=== PATIENT | female | born 1990 | race Two or more races ===

== ENCOUNTER 2023-05-24 03:27 | Emergency (ER) | payer OTHER ==
[~2023-05-24] VITALS: Ht 160 cm; Wt 87.1 kg
[~2023-05-24 03:27] MED LIST: PROTONIX40 MG PO
[2023-05-24 05:45] LABS: HEMATOCRIT 35.5 % (36.0-45.00); HEMOGLOBIN 11.8 g/dL (12.0-15.00); MEAN CELL VOLUME 77.2 fL (80.00-100.00); MEAN CORPUSCULAR HEMOGLOBIN 25.8 pg (27.00-32.0); MEAN CORPUSCULAR HGB CONC 33.4 g/dl (32.0-36.0); PLATELET COUNT 263 K/uL (150-450); RED CELL DISTRIBUTION WIDTH 15.4 % (11.5-14.5)
[2023-05-24 07:26] LABS: URINE APPEARANCE Cloudy; URINE BILIRRUBIN Negative (NEGATIVE); URINE BLOOD Large; URINE COLOR Orange; URINE GLUCOSE Negative (NEGATIVE); URINE LEUKOCYTE Trace; URINE NITRATE Negative; URINE PROTEIN Trace (NEGATIVE); URINE UROBILINOGEN 0.2 E.U./dl
[2023-05-24 07:27] LABS: URINE BACTERIA 711.8 uL (0.0-1933); URINE EPITHELIAL CELLS 17.6 uL (0.0-38.8); URINE RBC 1233.2 uL (0.0-20.8); URINE WBC 6.6 uL (0.0-23.2)
[2023-05-24 07:51] LABS: URINE YEAST NEGATIVE /hpf
[2023-05-24 07:54] LABS: CALCIUM 9.8 mg/dL (8.5-10.1); CREATININE SERUM 0.66 mg/dL (0.55-1.02); GFR 103.78; POTASSIUM 4.02 mEq/L (3.5-5.1)
[2023-05-24 07:58] LABS: INR 0.99; PARTIAL THROMBOPLASTIN TIME 25.6 SECONDS (22.0-34.0); PROTHROMBIN TIME 10.4 SECONDS (9.0-11.5)
== END 2023-05-24 10:08 | disposition designated cancer center or children's hospital (05) ==
LOC: ER 03:27
PROVIDERS: General Practice
DX: O03.4 Incomplete spontaneous abortion without complication (principal)

== ENCOUNTER 2023-12-18 07:23 | Emergency (ER) | payer OTHER ==
[~2023-12-18] VITALS: Ht 160 cm; Wt 88.0 kg
[~2023-12-18 07:23] MED LIST changes: +PRENATAL DHA200 MG
[2023-12-18] MEDS ORDERED: 0.9 % SODIUM CHLORIDE 500 ML IV ONE (08:45)
[2023-12-18] MEDS ORDERED: FAMOtidine 10 MG/ML (4ML VIAL) IV ONE (08:45)
[2023-12-18] MEDS ORDERED: MEPERIDINE HCL/PF 50 MG/ML VIAL IM ONE (08:45)
[2023-12-18] MEDS ORDERED: FAMOtidine 200mg/20ml VIAL ONE (08:49)
[2023-12-18 09:37] LABS: HEMATOCRIT 37.5 % (36.0-45.00); HEMOGLOBIN 12.6 g/dL (12.0-15.00); MEAN CELL VOLUME 76.1 fL (80.00-100.00); MEAN CORPUSCULAR HEMOGLOBIN 25.6 pg (27.00-32.0); MEAN CORPUSCULAR HGB CONC 33.7 g/dl (32.0-36.0); PLATELET COUNT 266 K/uL (150-450); RED BLOOD COUNT 4.92 M/uL (4.00-6.00); RED CELL DISTRIBUTION WIDTH 17.8 % (11.5-14.5)
[2023-12-18 09:56] LABS: URINE APPEARANCE Clear; URINE BILIRRUBIN Negative (NEGATIVE); URINE BLOOD Negative; URINE COLOR Yellow; URINE GLUCOSE Negative (NEGATIVE); URINE LEUKOCYTE Negative; URINE NITRATE Negative; URINE PROTEIN Negative (NEGATIVE); URINE UROBILINOGEN 0.2 E.U./dl
[2023-12-18 10:00] LABS: URINE BACTERIA 417.9 uL (0.0-1933); URINE EPITHELIAL CELLS 1.5 uL (0.0-38.8)
[2023-12-18 10:23] LABS: URINE RBC 1.2 uL (0.0-20.8); URINE WBC 1.3 uL (0.0-23.2)
== END 2023-12-18 13:06 | disposition home or self-care (01) ==
LOC: ER 07:24
PROVIDERS: General Practice
DX: R10.2 Pelvic and perineal pain (principal); R10.9 Unspecified abdominal pain; Z3A.12 12 weeks gestation of pregnancy; Z91.018 Allergy to other foods

== ENCOUNTER → 2023-12-22 08:36 | Outpatient (CLI) | payer OTHER | END | disposition home or self-care (01) | LOC: PRENATAL 08:36 | PROVIDERS: ATTEND Obstetrics & Gynecology Maternal & Fetal Medicine | DX: O36.80X0 Pregnancy with inconclusive fetal viability, not applicable or unspecified (principal); Z36.82 Encounter for antenatal screening for nuchal translucency; Z3A.12 12 weeks gestation of pregnancy ==

== ENCOUNTER 2024-03-01 02:05 | Outpatient (CLI) | payer OTHER ==
[~2024-03-01] VITALS: Ht 160 cm; Wt 93.4 kg
[2024-03-01 01:14] VITALS: BP 120/79
[2024-03-01 04:05] VITALS: BP 119/75
[2024-03-01 07:06] VITALS: BP 104/68; O2SAT 100
[2024-03-01 11:05] VITALS: BP 124/78
[2024-03-01 12:00] VITALS: BP 124/78
== END 2024-03-01 12:19 | disposition home or self-care (01) ==
LOC: OBS/DEL 02:05
PROVIDERS: ATTEND Student in an Organized Health Care Education/Training Program
DX: O26.892 Other specified pregnancy related conditions, second trimester (principal); R10.9 Unspecified abdominal pain; O26.849 Uterine size-date discrepancy, unspecified trimester; Z3A.21 21 weeks gestation of pregnancy

== ENCOUNTER → 2024-03-20 | Outpatient (CLI) | payer OTHER | END | disposition home or self-care (01) | LOC: PRENATAL 07:56 | PROVIDERS: ATTEND Obstetrics & Gynecology Maternal & Fetal Medicine | DX: O35.3XX0 Maternal care for (suspected) damage to fetus from viral disease in mother, not applicable or unspecified (principal); O44.00 Complete placenta previa NOS or without hemorrhage, unspecified trimester; Z3A.24 24 weeks gestation of pregnancy ==

== ENCOUNTER 2024-05-12 09:45 | Outpatient (CLI) | payer OTHER | END 2024-05-12 09:46 | disposition home or self-care (01) | LOC: PRENATAL 09:45 | PROVIDERS: ATTEND Obstetrics & Gynecology Maternal & Fetal Medicine | DX: O26.849 Uterine size-date discrepancy, unspecified trimester (principal); O36.8199 Decreased fetal movements, unspecified trimester, other fetus; Z3A.33 33 weeks gestation of pregnancy ==

== ENCOUNTER 2024-06-01 04:19 | Outpatient (CLI) | payer OTHER ==
[~2024-06-01] VITALS: Ht 160 cm; Wt 97.5 kg
[2024-06-01 03:37] VITALS: BP 121/78
[2024-06-01] MEDS ORDERED: RINGERS SOLUTION,LACTATED 1,000 ML IV SCH (04:45)
[2024-06-01] MEDS ORDERED: BETAMETHASONE ACETATE,SOD PHOS 30 MG/5 ML ML IM STA (04:50)
[2024-06-01] MEDS ORDERED: PRENATA CHEWAB1 EACH PO (05:26)
[2024-06-01] MEDS ORDERED: CHILDREN'S ASPI81 MG PO (05:27)
[2024-06-01] MEDS ORDERED: IRON236 MG PO (05:27)
[2024-06-01 06:05] VITALS: BP 148/79; O2SAT 99
[2024-06-01 06:31] LABS: PH,URINE 7.5 (5.0-8.0); URINE APPEARANCE Clear; URINE BILIRRUBIN Negative (NEGATIVE); URINE BLOOD Negative; URINE COLOR Yellow; URINE GLUCOSE Negative (NEGATIVE); URINE KETONE Negative (NEGATIVE); URINE LEUKOCYTE Negative; URINE NITRATE Negative; URINE PROTEIN Negative (NEGATIVE); URINE UROBILINOGEN 0.2 E.U./dl
[2024-06-01 06:36] LABS: URINE BACTERIA 744.1 uL (0.0-1933); URINE EPITHELIAL CELLS 9.6 uL (0.0-38.8); URINE RBC 3.8 uL (0.0-20.8); URINE WBC 11.3 uL (0.0-23.2)
[2024-06-01 06:41] LABS: URINE CAST 0.14 uL (0.0-1.40)
[2024-06-01 06:45] LABS: HEMATOCRIT 31.6 % (36.0-45.00); HEMOGLOBIN 10.8 g/dL (12.0-15.00); MEAN CORPUSCULAR HEMOGLOBIN 27.9 pg (27.00-32.0); MEAN CORPUSCULAR HGB CONC 34.1 g/dl (32.0-36.0); PLATELET COUNT 195 K/uL (150-450); RED BLOOD COUNT 3.85 M/uL (4.00-6.00); RED CELL DISTRIBUTION WIDTH 14.7 % (11.5-14.5)
[2024-06-01 07:07] LABS: INR 0.95; PARTIAL THROMBOPLASTIN TIME 25.6 SECONDS (22.0-34.0); PROTHROMBIN TIME 10.4 SECONDS (9.0-11.5)
[2024-06-01 07:14] LABS: ALBUMIN 2.7 gm/dL (3.4-5.0); BILIRUBIN TOTAL 0.32 mg/dL (0.3-1.2); CALCIUM 9.8 mg/dL (8.5-10.1); CREATININE SERUM 0.46 mg/dL (0.55-1.02); GFR 156.44; GLOBULINA 3.1 G/DL (2.4-3.5); POTASSIUM 3.45 mEq/L (3.5-5.1); TOTAL PROTEIN 5.8 gm/dL (6.4-8.2)
[2024-06-01 11:14] VITALS: BP 125/80
[2024-06-01 15:03] VITALS: BP 131/84
[2024-06-01 20:00] VITALS: BP 123/78
[2024-06-01 23:14] VITALS: BP 120/75
[2024-06-02 04:15] VITALS: BP 137/85
[2024-06-02] MEDS ORDERED: BETAMETHASONE ACETATE,SOD PHOS 30 MG/5 ML ML IM ONE (05:00)
[2024-06-02 06:58] VITALS: BP 129/89; O2SAT 99
[2024-06-02 07:30] VITALS: BP 129/89
== END 2024-06-02 10:07 | disposition home or self-care (01) ==
LOC: OBS/DEL 04:19
PROVIDERS: Obstetrics & Gynecology; ATTEND Student in an Organized Health Care Education/Training Program
DX: O42.913 Preterm premature rupture of membranes, unspecified as to length of time between rupture and onset of labor, third trimester (principal); Z3A.35 35 weeks gestation of pregnancy; Z91.018 Allergy to other foods

== ENCOUNTER 2024-06-07 16:34 | Outpatient (CLI) | payer OTHER ==
[~2024-06-07 16:34] MED LIST changes: +CHILDREN'S ASPI81 MG PO; +IRON236 MG PO; +PRENATA CHEWAB1 EACH PO
[2024-06-07 18:00] VITALS: BP 127/81
[2024-06-07] MEDS ORDERED: RINGERS SOLUTION,LACTATED 1,000 ML IV SCH (18:00)
[2024-06-07 18:18] LABS: PH,URINE 7.5 (5.0-8.0); URINE APPEARANCE Cloudy; URINE BILIRRUBIN Negative (NEGATIVE); URINE BLOOD Negative; URINE COLOR Yellow; URINE GLUCOSE Negative (NEGATIVE); URINE KETONE Negative (NEGATIVE); URINE LEUKOCYTE Negative; URINE NITRATE Negative; URINE PROTEIN Negative (NEGATIVE); URINE UROBILINOGEN 0.2 E.U./dl
[2024-06-07 18:21] LABS: URINE BACTERIA 926.3 uL (0.0-1933); URINE EPITHELIAL CELLS 11.8 uL (0.0-38.8); URINE RBC 11.6 uL (0.0-20.8); URINE WBC 18.9 uL (0.0-23.2)
[2024-06-07 18:22] LABS: URINE CAST 0.58 uL (0.0-1.40)
[2024-06-07 18:26] LABS: HEMATOCRIT 32.5 % (36.0-45.00); HEMOGLOBIN 11.1 g/dL (12.0-15.00); MEAN CORPUSCULAR HEMOGLOBIN 27.9 pg (27.00-32.0); MEAN CORPUSCULAR HGB CONC 34.1 g/dl (32.0-36.0); PLATELET COUNT 217 K/uL (150-450); RED BLOOD COUNT 3.96 M/uL (4.00-6.00); RED CELL DISTRIBUTION WIDTH 15.8 % (11.5-14.5)
[2024-06-07 18:36] LABS: INR 0.96; PARTIAL THROMBOPLASTIN TIME 24.8 SECONDS (22.0-34.0); PROTHROMBIN TIME 10.5 SECONDS (9.0-11.5)
[2024-06-07 18:40] LABS: ALBUMIN 2.9 gm/dL (3.4-5.0); BILIRUBIN TOTAL 0.29 mg/dL (0.3-1.2); CALCIUM 10.8 mg/dL (8.5-10.1); CREATININE SERUM 0.57 mg/dL (0.55-1.02); GFR 122.15; GLOBULINA 3.3 G/DL (2.4-3.5); POTASSIUM 3.91 mEq/L (3.5-5.1); TOTAL PROTEIN 6.2 gm/dL (6.4-8.2)
[2024-06-07 19:41] VITALS: BP 116/71
[2024-06-07 23:53] VITALS: BP 119/69
[2024-06-08] MEDS ORDERED: ACETAMINOPHEN 500 MG GEL..CAP PO ONE (00:15)
[2024-06-08 03:25] VITALS: BP 134/82
[2024-06-08 05:57] VITALS: BP 112/74; O2SAT 99
[2024-06-08 11:00] VITALS: BP 129/82
[2024-06-08 15:28] VITALS: BP 119/76
[2024-06-08 18:20] VITALS: BP 119/76
[2024-06-08 18:31] LABS: URINE PROT QUANT 24HR 9.9 MG/DL
[2024-06-08 18:33] LABS: URINE PROT QUANT 24 HR 499.95 MG/24HR (42-225)
[2024-06-08 19:13] LABS: CREATINE CLEARANCE 15402.9 ML/MIN (97-137); CREATININE SERUM 0.6 mg/dL (0.6-1.0)
== END 2024-06-08 18:20 | disposition home or self-care (01) ==
LOC: OBS/DEL 16:34
PROVIDERS: ATTEND Student in an Organized Health Care Education/Training Program
DX: O26.892 Other specified pregnancy related conditions, second trimester (principal); Z3A.27 27 weeks gestation of pregnancy; R10.2 Pelvic and perineal pain

== ENCOUNTER 2024-06-13 07:07 | Inpatient (IN) | payer OTHER ==
[~2024-06-13] VITALS: Ht 160 cm; Wt 98.0 kg
[2024-06-13 07:27] VITALS: BP 122/77
[2024-06-13] MEDS ORDERED: AMPICILLIN SODIUM 2,000 MG VIAL IV ONE (08:10)
[2024-06-13 08:14] LABS: PH,URINE 7.5 (5.0-8.0); URINE APPEARANCE Clear; URINE BILIRRUBIN Negative (NEGATIVE); URINE BLOOD Negative; URINE COLOR Yellow; URINE GLUCOSE Negative (NEGATIVE); URINE KETONE Negative (NEGATIVE); URINE LEUKOCYTE Small; URINE NITRATE Negative; URINE PROTEIN Trace (NEGATIVE); URINE UROBILINOGEN 0.2 E.U./dl
[2024-06-13 08:18] LABS: URINE BACTERIA 2101.5 uL (0.0-1933); URINE RBC 13.5 uL (0.0-20.8); URINE WBC 53.5 uL (0.0-23.2)
[2024-06-13 08:21] LABS: HEMATOCRIT 35.2 % (36.0-45.00); HEMOGLOBIN 11.6 g/dL (12.0-15.00); MEAN CORPUSCULAR HEMOGLOBIN 27.4 pg (27.00-32.0); PLATELET COUNT 198 K/uL (150-450); RED BLOOD COUNT 4.24 M/uL (4.00-6.00); RED CELL DISTRIBUTION WIDTH 15.1 % (11.5-14.5)
[2024-06-13 08:25] LABS: URINE CAST 0.73 uL (0.0-1.40)
[2024-06-13 08:44] LABS: INR 0.95; PARTIAL THROMBOPLASTIN TIME 25.9 SECONDS (22.0-34.0); PROTHROMBIN TIME 10.4 SECONDS (9.0-11.5)
[2024-06-13 09:18] LABS: ALBUMIN 2.9 gm/dL (3.4-5.0); BILIRUBIN TOTAL 0.39 mg/dL (0.3-1.2); CALCIUM 9.8 mg/dL (8.5-10.1); CREATININE SERUM 0.61 mg/dL (0.55-1.02); GFR 112.95; GLOBULINA 3.5 G/DL (2.4-3.5); POTASSIUM 3.92 mEq/L (3.5-5.1); TOTAL PROTEIN 6.4 gm/dL (6.4-8.2); URIC ACID 2.6 mg/dL (2.5-7.5)
[2024-06-13 11:48] VITALS: BP 123/62
[2024-06-13] MEDS ORDERED: AMPICILLIN SODIUM 1,000 MG VIAL IV SCH (12:00)
[2024-06-13] MEDS ORDERED: MISOPROSTOL 25 MCG/4 ML GEL.W.APPL ONE (12:14)
[2024-06-13] MEDS ORDERED: MISOPROSTOL 25 MCG/4 ML GEL.W.APPL VAG ONE ×2 (12:30→17:00)
[2024-06-13 15:13] VITALS: BP 124/74
[2024-06-13 20:47] VITALS: BP 130/82
[2024-06-13 23:32] VITALS: BP 118/62
[2024-06-14] VITALS (14 sets, daily range): BP systolic 118–161; BP diastolic 67–99
[2024-06-14] MEDS ORDERED: MISOPROSTOL 25 MCG/4 ML GEL.W.APPL ONE (08:28)
[2024-06-14] MEDS ORDERED: MISOPROSTOL 25 MCG/4 ML GEL.W.APPL VAG ONE (08:45)
[2024-06-14] MEDS ORDERED: OXYTOCIN 500 ML IV SCH (12:30)
[2024-06-14] MEDS ORDERED: OXYTOCIN 20 UNITS/500ML RL PIGGYBAG IV ONE (12:31)
[2024-06-14] MEDS ORDERED: MEPERIDINE HCL/PF 50 MG/ML VIAL IV ONE (15:15)
[2024-06-14] MEDS ORDERED: PROMETHAZINE HCL 25 MG/ML AMPUL IV ONE (15:15)
[2024-06-14] MEDS ORDERED: CHLORHEXIDINE GLUCONATE 120 ML BOTTLE TOP ONE ×2 (18:00→18:10)
[2024-06-14] MEDS ORDERED: OXYTOCIN 20 UNITS/1000ML RL PIGGYBAG IV ONE (18:10)
[2024-06-14] MEDS ORDERED: LIDOCAINE HCL 1% 10ML VIAL ONE (18:10)
[2024-06-14] MEDS ORDERED: ERYTHROMYCIN BASE OPHT 1GM EACH TUBE OP ONE ×2 (18:10→18:30)
[2024-06-14] MEDS ORDERED: LIDOCAINE HCL 1% 10ML VIAL IJ ONE (18:35)
[2024-06-14] MEDS ORDERED: ACETAMINOPHEN 500 MG GEL..CAP PO PRN (19:15)
[2024-06-14] MEDS ORDERED: OXYTOCIN 1,000 ML IV SCH (19:15)
[2024-06-15 00:15] LABS: HEMATOCRIT 30.7 % (36.0-45.00); MEAN CELL VOLUME 82.3 fL (80.00-100.00); MEAN CORPUSCULAR HGB CONC 33.5 g/dl (32.0-36.0); PLATELET COUNT 198 K/uL (150-450); RED BLOOD COUNT 3.73 M/uL (4.00-6.00); RED CELL DISTRIBUTION WIDTH 15.1 % (11.5-14.5)
[2024-06-15 00:16] LABS: HEMOGLOBIN 10.3 g/dL (12.0-15.00); MEAN CORPUSCULAR HEMOGLOBIN 27.6 pg (27.00-32.0)
[2024-06-15 01:15] VITALS: BP 117/80
[2024-06-15 08:29] VITALS: BP 140/83
[2024-06-15] MEDS ORDERED: HYDROCORTISONE ACETATE 25 MG/SUPP.RECT SUPP.RECT RECTAL SCH (09:00)
[2024-06-15] MEDS ORDERED: PNV,CALCIUM 72/IRON/FOLIC ACID 1 TAB TABLET PO SCH (09:00)
[2024-06-15 16:47] VITALS: BP 128/81
[2024-06-16 00:57] VITALS: BP 125/85
[2024-06-16 07:56] VITALS: BP 136/89
== END 2024-06-16 11:49 | disposition home or self-care (01) | DRG 769 ==
LOC: LDR 07:07 → OB/GYN 06-14 19:36
PROVIDERS: Student in an Organized Health Care Education/Training Program; ADMIT Obstetrics & Gynecology; ATTEND Obstetrics & Gynecology
PROC: 10E0XZZ Delivery of Products of Conception, External Approach (ICD-10-PCS; principal; 2024-06-14)
PROC: 0KQM0ZZ Repair Perineum Muscle, Open Approach (ICD-10-PCS; 2024-06-14)
PROC: 3E033VJ Introduction of Other Hormone into Peripheral Vein, Percutaneous Approach (ICD-10-PCS; 2024-06-14)
PROC: 3E0P7VZ Introduction of Hormone into Female Reproductive, Via Natural or Artificial Opening (ICD-10-PCS; 2024-06-14)
PROC: 4A1HXCZ Monitoring of Products of Conception, Cardiac Rate, External Approach (ICD-10-PCS; 2024-06-14)
DX: O70.1 Second degree perineal laceration during delivery (principal); O14.94 Unspecified pre-eclampsia, complicating childbirth; O13.4 Gestational [pregnancy-induced] hypertension without significant proteinuria, complicating childbirth; Z3A.37 37 weeks gestation of pregnancy; Z20.822 Contact with and (suspected) exposure to COVID-19

== ENCOUNTER 2024-06-21 17:21 | Emergency (ER) | payer OTHER ==
[~2024-06-21] VITALS: Ht 160 cm; Wt 89.4 kg
[2024-06-21 17:32] VITALS: BP 140/93; O2SAT 100
[2024-06-21] MEDS ORDERED: DIPHENOXYLATE HCL/ATROPINE 1 UDTAB TABLET PO STA (19:11)
[2024-06-21] MEDS ORDERED: 0.9 % SODIUM CHLORIDE 1,000 ML IV STA (19:11)
[2024-06-21] MEDS ORDERED: HYOSCYAMINE SULFATE 0.125 MG TAB.SUBL SL ONE (19:15)
[2024-06-21] MEDS ORDERED: HYOSCYAMINE SULFATE 0.125 MG TAB.SUBL ONE (19:32)
[2024-06-21 19:53] LABS: HEMATOCRIT 30.5 % (36.0-45.00); HEMOGLOBIN 10.4 g/dL (12.0-15.00); MEAN CORPUSCULAR HEMOGLOBIN 27.7 pg (27.00-32.0); MEAN CORPUSCULAR HGB CONC 34.2 g/dl (32.0-36.0); PLATELET COUNT 321 K/uL (150-450); RED BLOOD COUNT 3.77 M/uL (4.00-6.00); RED CELL DISTRIBUTION WIDTH 15.2 % (11.5-14.5)
[2024-06-21 20:16] LABS: CREATININE SERUM 0.68 mg/dL (0.55-1.02); GFR 99.65; POTASSIUM 3.22 mEq/L (3.5-5.1)
[2024-06-21] MEDS ORDERED: ONDANSETRON HCL 2 MG/ML VIAL ONE (22:41)
== END 2024-06-21 22:22 | disposition home or self-care (01) ==
LOC: ER 17:23
DX: K59.1 Functional diarrhea (principal); Z91.018 Allergy to other foods